=== PATIENT | female | born 1960 | race Caucasian/White ===

== ENCOUNTER 2017-02-09 13:01 | Outpatient (CLI) | payer BC, OTHER | END 2017-02-09 23:59 | DX: Z00.00 Encounter for general adult medical examination without abnormal findings (principal); E78.2 Mixed hyperlipidemia; Z79.899 Other long term (current) drug therapy ==

== ENCOUNTER 2017-04-07 19:50 | Outpatient (CLI) | payer OTHER | END 2017-04-07 19:51 | disposition home or self-care (01) | DX: E78.2 Mixed hyperlipidemia (principal); Z79.899 Other long term (current) drug therapy ==

== ENCOUNTER 2017-04-12 10:58 | Outpatient (CLI) | payer OTHER ==
--- NOTE | 2017-04-13 11:02 | Mammography Report ---
DIGITAL BILATERAL SCREENING MAMMOGRAM: 04/12/2017 CLINICAL HISTORY: This is a 57-year-old female in for a routine screening mammogram. Patient's fami ly history indicates her family had breast cancer at age 73. Patient has had no prior breast surgeries. COMPARISON: 10/06/2007, 07/03/2009, 10/22/2015. TECHNIQUE: Craniocaudad and oblique lateral views of each breast were obtained with [employer]ologic full-fie ld digital mammography. FINDINGS: Breast parenchyma shows scattered fibroglandular densities. No significant clusters of ca lcification are seen. No significant masses are noted. No change is seen. IMPRESSION: BREASTS APPEAR RADIOGRAPHICALLY BENIGN. BI-RADS 1, negative. RECOMMENDATION: Annual bilateral screening mammography. STANDARD QUALIFYING STATEMENTS 1. This examination was reviewed with the aid of Computer-Aided Detection (CAD). 2. A negative or benign imaging report should not delay biopsy if clinically suspicious findings are present. Consider surgical consultation if warranted. More than 5% of cancers are not identified by i maging. 3. Dense breasts may obscure an underlying neoplasm. JOB #: [id number] EXT JOB #:[id number]
== END 2017-04-12 10:59 | disposition home or self-care (01) ==
LOC: DI 10:58
PROVIDERS: ATTEND Physician Assistant Medical
DX: Z12.31 Encounter for screening mammogram for malignant neoplasm of breast (principal); Z80.3 Family history of malignant neoplasm of breast
CPT/HCPCS: 77067

== ENCOUNTER 2018-06-27 09:01 | Outpatient (CLI) | payer OTHER ==
[2018-06-27 17:02] LABS: BASOPHILS # (AUTO) 0.1 10^3/uL (0.0-0.1); BASOPHILS % (AUTO) 1.1 %; BILIRUBIN,URINE NEGATIVE (NEGATIVE); EOSINOPHILS # (AUTO) 0.2 10^3/uL (0.0-0.7); EOSINOPHILS % (AUTO) 3.9 %; GLUCOSE, URINE (UA) NEGATIVE (NEGATIVE); HGB - HEMOGLOBIN 14.9 g/dL (12.0-16.0); KETONES,URINE (UA) NEGATIVE (NEGATIVE); LEUKOCYTE ESTERASE, URINE NEGATIVE (NEGATIVE); LYMPHOCYTES # (AUTO) 1.4 10^3/uL (1.5-3.5); LYMPHOCYTES % (AUTO) 29.3 %; MEAN CORPUSCULAR HGB CONC 34.4 g/dL (32.0-36.0); MEAN CORPUSCULAR VOLUME 96.1 fL (81.0-99.0); MEAN PLATELET VOLUME 8.6 fL (7.9-10.8); MONOCYTES # (AUTO) 0.4 10^3/uL (0.0-1.0); MONOCYTES % (AUTO) 8.5 %; NEUTROPHILS # (AUTO) 2.7 10^3/uL (1.5-6.6); NEUTROPHILS % (AUTO) 57.2 %; NITRITE,URINE NEGATIVE (NEGATIVE); OCCULT BLOOD,URINE NEGATIVE (NEGATIVE); PH,URINE 6.5 PH (5.0-7.5); PLT - PLATELET COUNT 208 10^3/uL (130-450); PROTEIN,URINE NEGATIVE (NEGATIVE); RED BLOOD COUNT 4.52 10^6/uL (4.20-5.40); RED CELL DISTRIBUTION WIDTH 12.7 % (12.0-15.0); UROBILINOGEN,URINE 0.2 (NORMAL) E.U./dL (NORMAL); WHITE BLOOD COUNT 4.8 x10^3/uL (4.8-10.8)
[2018-06-27 17:03] LABS: CLARITY,URINE CLEAR (CLEAR)
[2018-06-27 17:14] LABS: ALBUMIN 4.2 g/dL (3.2-5.5); ALBUMIN/GLOBULIN RATIO 1.4 (1.0-2.2); ALKALINE PHOSPHATASE 79 IU/L (42-121); ALT ALANINE AMINOTRANSFERASE 28 IU/L (10-60); AST ASPARTATE AMINOTRANSFERASE 26 IU/L (10-42); BILIRUBIN,TOTAL 0.9 mg/dL (0.2-1.0); BUN - BLOOD UREA NITROGEN 9 mg/dL (6-20); CALCIUM 9.4 mg/dL (8.5-10.3); CARBON DIOXIDE - CO2 25 mmol/L (21-32); CHLORIDE 106 mmol/L (101-111); CHOL/HDL RATIO 2.4 (<4.4); CHOLESTEROL 187 mg/dL; CREATININE 0.6 mg/dL (0.4-1.0); GFR - MDRD 102 (>89); GLUCOSE 74 mg/dL (70-100); HDL CHOLESTEROL 78 mg/dL; LDL CHOLESTEROL,CALCULATED 78 mg/dL; SODIUM 141 mmol/L (135-145); TOTAL PROTEIN 7.1 g/dL (6.7-8.2); VLDL CHOLESTEROL 31 mg/dL
[2018-06-28 13:07] LABS: HEPATITIS C ANTIBODY NON-REACTIVE (NON-REACTIVE)
== END 2018-06-27 09:02 ==
LOC: LAB.R 09:01
PROVIDERS: ATTEND Physician Assistant Medical
DX: Z00.00 Encounter for general adult medical examination without abnormal findings (principal); E55.9 Vitamin D deficiency, unspecified; Z79.899 Other long term (current) drug therapy; I10 Essential (primary) hypertension; Z13.818 Encounter for screening for other digestive system disorders
CPT/HCPCS: 80053; 80061; 81001; 81003; 82306; 83721; 84443; 85025; 86803; 87086

== ENCOUNTER 2018-07-06 14:20 | Outpatient (CLI) | payer OTHER | END 2018-07-06 14:21 | disposition home or self-care (01) | LOC: CAM 14:20 | PROVIDERS: ATTEND Orthopaedic Surgery Orthopaedic Surgery of the Spine | DX: M43.16 Spondylolisthesis, lumbar region (principal); Z98.890 Other specified postprocedural states; M47.26 Other spondylosis with radiculopathy, lumbar region | CPT/HCPCS: 97810; 97811 ==

== ENCOUNTER 2018-08-03 16:30 | Outpatient (CLI) | payer OTHER | END 2018-08-03 16:31 | disposition home or self-care (01) | LOC: CAM 16:30 | PROVIDERS: ATTEND Orthopaedic Surgery Orthopaedic Surgery of the Spine | DX: M43.16 Spondylolisthesis, lumbar region (principal); M48.062 Spinal stenosis, lumbar region with neurogenic claudication; M47.26 Other spondylosis with radiculopathy, lumbar region; Z98.890 Other specified postprocedural states | CPT/HCPCS: 97810; 97811 ==

== ENCOUNTER 2019-04-02 07:27 | Outpatient (CLI) | payer BC ==
[2019-04-02 07:43] LABS: BASOPHILS # (AUTO) 0.1 10^3/uL (0.0-0.1); BASOPHILS % (AUTO) 1.3 %; EOSINOPHILS # (AUTO) 0.2 10^3/uL (0.0-0.7); HGB - HEMOGLOBIN 14.9 g/dL (12.0-16.0); LYMPHOCYTES # (AUTO) 2.1 10^3/uL (1.5-3.5); LYMPHOCYTES % (AUTO) 45.5 %; MEAN CORPUSCULAR HGB CONC 34.6 g/dL (32.0-36.0); MEAN CORPUSCULAR VOLUME 89.7 fL (81.0-99.0); MEAN PLATELET VOLUME 7.7 fL (7.9-10.8); MONOCYTES # (AUTO) 0.4 10^3/uL (0.0-1.0); MONOCYTES % (AUTO) 8.6 %; NEUTROPHILS # (AUTO) 1.8 10^3/uL (1.5-6.6); NEUTROPHILS % (AUTO) 39.6 %; PLT - PLATELET COUNT 201 10^3/uL (130-450); RED BLOOD COUNT 4.81 10^6/uL (4.20-5.40); RED CELL DISTRIBUTION WIDTH 12.2 % (12.0-15.0); WHITE BLOOD COUNT 4.6 x10^3/uL (4.8-10.8)
[2019-04-02 07:57] LABS: ALBUMIN 3.9 g/dL (3.2-5.5); CALCIUM 8.7 mg/dL (8.5-10.3); CREATININE 0.6 mg/dL (0.4-1.0)
[2019-04-02 08:03] LABS: HEMOGLOBIN A1C 0.5 g/dL
[2019-04-03 10:22] LABS: HEPATITIS C ANTIBODY NON-REACTIVE (NON-REACTIVE)
[2019-04-03 13:47] LABS: HIV AG/AB 4TH GEN NON-REACTIVE (NON-REACTIVE)
== END 2019-04-02 07:28 | disposition home or self-care (01) ==
LOC: LAB 07:27
PROVIDERS: ATTEND Orthopaedic Surgery
DX: Z01.812 Encounter for preprocedural laboratory examination (principal); M16.12 Unilateral primary osteoarthritis, left hip
CPT/HCPCS: 36415; 80048; 82040; 83036; 84134; 85025; 86803; 87389

== ENCOUNTER 2019-04-09 15:39 | Outpatient (CLI) | payer BC | END 2019-04-09 15:40 | LOC: RT 15:39 | PROVIDERS: ATTEND Orthopaedic Surgery | DX: Z01.810 Encounter for preprocedural cardiovascular examination (principal); M16.12 Unilateral primary osteoarthritis, left hip | CPT/HCPCS: 93005 ==

== ENCOUNTER 2019-09-25 16:05 | Outpatient (CLI) | payer BC | END 2019-09-25 16:06 | disposition home or self-care (01) | LOC: RT 16:05 | PROVIDERS: ATTEND Orthopaedic Surgery | DX: Z01.810 Encounter for preprocedural cardiovascular examination (principal) | CPT/HCPCS: 93005 ==

== ENCOUNTER 2019-10-17 11:13 | Outpatient (CLI) | payer BC ==
[2019-10-17 11:52] LABS: BILIRUBIN,URINE NEGATIVE (NEGATIVE); GLUCOSE, URINE (UA) NEGATIVE (NEGATIVE); KETONES,URINE (UA) NEGATIVE (NEGATIVE); LEUKOCYTE ESTERASE, URINE NEGATIVE (NEGATIVE); NITRITE,URINE POSITIVE (NEGATIVE); OCCULT BLOOD,URINE NEGATIVE (NEGATIVE); PROTEIN,URINE NEGATIVE (NEGATIVE); UROBILINOGEN,URINE 0.2 (NORMAL) E.U./dL (NORMAL)
[2019-10-17 12:05] LABS: CLARITY,URINE HAZY (CLEAR)
[2019-10-17 12:06] LABS: BACTERIA,URINE Few /HPF (None Seen); RBC,URINE 0-5 /HPF (0-5); SQUAMOUS EPITHELIAL CELL,UR RARE Squamous (<= Few)
== END 2019-10-17 11:14 | disposition home or self-care (01) ==
LOC: LAB 11:13
PROVIDERS: ATTEND Orthopaedic Surgery
DX: Z01.812 Encounter for preprocedural laboratory examination (principal); M16.11 Unilateral primary osteoarthritis, right hip
CPT/HCPCS: 81001; 81003; 87086; 87181

== ENCOUNTER 2020-07-25 08:28 | Outpatient (CLI) | payer OTHER ==
[2020-07-25 08:44] LABS: BASOPHILS # (AUTO) 0.1 10^3/uL (0.0-0.1); BASOPHILS % (AUTO) 0.8 %; EOSINOPHILS # (AUTO) 0.3 10^3/uL (0.0-0.7); EOSINOPHILS % (AUTO) 3.8 %; HGB - HEMOGLOBIN 15.9 g/dL (12.0-16.0); LYMPHOCYTES # (AUTO) 2.3 10^3/uL (1.5-3.5); LYMPHOCYTES % (AUTO) 30.8 %; MEAN CORPUSCULAR HEMOGLOBIN 32.4 pg (27.0-31.0); MEAN CORPUSCULAR HGB CONC 34.6 g/dL (32.0-36.0); MEAN CORPUSCULAR VOLUME 93.5 fL (81.0-99.0); MEAN PLATELET VOLUME 9.9 fL (7.9-10.8); MONOCYTES # (AUTO) 0.6 10^3/uL (0.0-1.0); MONOCYTES % (AUTO) 8.1 %; NEUTROPHILS # (AUTO) 4.2 10^3/uL (1.5-6.6); NEUTROPHILS % (AUTO) 56.1 %; PLT - PLATELET COUNT 253 10^3/uL (130-450); RED BLOOD COUNT 4.91 10^6/uL (4.20-5.40); RED CELL DISTRIBUTION WIDTH 12.1 % (12.0-15.0); WHITE BLOOD COUNT 7.4 x10^3/uL (4.8-10.8)
[2020-07-25 09:12] LABS: ALBUMIN 4.4 g/dL (3.2-5.5); ALBUMIN/GLOBULIN RATIO 1.6 (1.0-2.2); ALKALINE PHOSPHATASE 93 IU/L (42-121); ALT ALANINE AMINOTRANSFERASE 38 IU/L (10-60); AST ASPARTATE AMINOTRANSFERASE 25 IU/L (10-42); BILIRUBIN,TOTAL 0.6 mg/dL (0.2-1.0); BUN - BLOOD UREA NITROGEN 11 mg/dL (6-20); CALCIUM 9.2 mg/dL (8.5-10.3); CARBON DIOXIDE - CO2 28 mmol/L (21-32); CHLORIDE 102 mmol/L (101-111); CHOL/HDL RATIO 4.3 (<4.4); CHOLESTEROL 203 mg/dL; CREATININE 0.7 mg/dL (0.4-1.0); GLUCOSE 111 mg/dL (70-100); HDL CHOLESTEROL 47 mg/dL; LDL CHOLESTEROL,CALCULATED 124 mg/dL; LDL/HDL RATIO 2.6 (<4.4); SODIUM 138 mmol/L (135-145); TOTAL PROTEIN 7.2 g/dL (6.7-8.2); VLDL CHOLESTEROL 32 mg/dL
[2020-07-25 09:25] LABS: THYROID STIMULATING HORMONE 0.35 uIU/mL (0.34-5.60)
[2020-07-25 09:27] LABS: FREE T4 (FREE THYROXINE) 0.76 ng/dL (0.58-1.64)
== END 2020-07-25 08:29 | disposition home or self-care (01) ==
LOC: LAB 08:28
PROVIDERS: ATTEND Nurse Practitioner
DX: E78.2 Mixed hyperlipidemia (principal); Z79.899 Other long term (current) drug therapy; I10 Essential (primary) hypertension; E55.9 Vitamin D deficiency, unspecified; F32.9 Major depressive disorder, single episode, unspecified
CPT/HCPCS: 36415; 80053; 80061; 82306; 83721; 84439; 84443; 85025

== ENCOUNTER 2020-08-06 15:44 | Outpatient (CLI) | payer OTHER ==
--- NOTE | 2020-08-07 07:56 | Mammography Report ---
BILATERAL DIGITAL SCREENING MAMMOGRAM 3D/2D: 08/06/2020 CLINICAL: Routine screening. Comparison is made to exam dated: 04/12/2017 mammogram - [facility]. The tissue of both breasts is predominantly fatty. There is a 0.5 cm asymmetry in the right breast middle depth central to the nipple seen on the cranio caudal view only 6.8 cm from the nipple. No other significant masses, calcifications, or other findings are seen in either breast. IMPRESSION: INCOMPLETE: NEEDS ADDITIONAL IMAGING EVALUATION The 0.5 cm asymmetry in the right breast is indeterminate. A diagnostic mammogram and ultrasound is recommended. This exam was interpreted at Station ID: [id number]. NOTE: For mammograms, a report in lay terms will be sent to the patient. Approximately 15% of breast malignancies will not be visualized mammographically. In the management of a palpable breast mass, a negative mammogram must not discourage biopsy of a clinically suspicious lesion. Electronically Signed By: Bismark Cali M.D., jr/penrad:08/06/2020 16:50:19 ACR BI-RADS Category 0: Incomplete 3340F PARENCHYMAL PATTERN: (F) - The breast(s) demonstrate(s) diffuse fatty replacement. BI-RADS CATEGORY: (0) - 0 Mammo and [place] [id number] Immediate follow-up LATERALITY: (B)
== END 2020-08-06 15:45 | disposition home or self-care (01) ==
LOC: DI.N 15:44
PROVIDERS: ATTEND Nurse Practitioner
DX: Z12.31 Encounter for screening mammogram for malignant neoplasm of breast (principal); R92.8 Other abnormal and inconclusive findings on diagnostic imaging of breast
CPT/HCPCS: 77063; 77067

== ENCOUNTER 2020-10-01 08:53 | Outpatient (CLI) | payer OTHER ==
--- NOTE | 2020-10-02 13:22 | Ultrasound Report ---
LIMITED ULTRASOUND OF RIGHT BREAST: 10/01/2020 CLINICAL: Patient returns for additional imaging over a suspected mass in the right breast. Comparison is made to exams dated: 10/01/2020 mammogram, 08/06/2020 mammogram, and 04/12/2017 mammogra m - [facility]. Ultrasound of the right breast 12 o'clock region was performed on the area of interest. There is a 0.8 cm mass in the right breast at 12 o'clock middle depth. This mass is hypoechoic. Thi s correlates with mammography findings. IMPRESSION: SUSPICIOUS OF MALIGNANCY The 0.8 cm mass in the right breast is at a low suspicion for malignancy. An ultrasound guided biops y is recommended. This exam was interpreted at Station ID: [id number]. SUMMARY: This was discussed with the patient by the radiologist Dr. Figueredo at the time of the exam. Electronically Signed By: Clarissa Granado M.D. lk/:10/01/2020 12:00:48 Ultrasound BI-RADS: 4a Low suspicion for malignancy BI-RADS CATEGORY: (4a) - Low Susp Biopsy follow-up [id number] Immediate follow-up LATERALITY: (B)
--- NOTE | 2020-10-02 13:22 | Mammography Report ---
UNILATERAL RIGHT DIGITAL DIAGNOSTIC MAMMOGRAM 3D/2D: 10/01/2020 CLINICAL: Patient returns today to evaluate a focal asymmetry in the right breast. Comparison is made to exams dated: 08/06/2020 mammogram and 04/12/2017 mammogram - [facility]. There are scattered fibroglandular elements in right breast. There is a focal asymmetry in the right breast at 12 o'clock middle depth. This is seen in additiona l views. No other significant masses or calcifications are seen in the breast. IMPRESSION: INCOMPLETE: NEEDS ADDITIONAL IMAGING EVALUATION The focal asymmetry in the right breast is indeterminate. A targeted ultrasound of the right breast is recommended and will be performed immediately following this exam. This exam was interpreted at Station ID: [id number]. NOTE: For mammograms, a report in lay terms will be sent to the patient. Approximately 15% of breast malignancies will not be visualized mammographically. In the management of a palpable breast mass, a negative mammogram must not discourage biopsy of a clinically suspicious lesion. Electronically Signed By: Clarissa Granado M.D. lk/:10/01/2020 09:34:21 ACR BI-RADS Category 0: Incomplete 3340F PARENCHYMAL PATTERN: (A) - The breast(s) demonstrate(s) scattered fibroglandular densities. BI-RADS CATEGORY: (0) - 0 Ultrasound [id number] Immediate follow-up LATERALITY: (B)
== END 2020-10-01 08:54 | disposition home or self-care (01) ==
LOC: DI 08:53
PROVIDERS: ATTEND Nurse Practitioner
DX: N63.15 Unspecified lump in the right breast, overlapping quadrants (principal)
CPT/HCPCS: 76642

== ENCOUNTER 2020-10-07 12:47 | Outpatient (CLI) | payer OTHER ==
[~2020-10-07 12:47] MED LIST: BUFFERED LIDOCAINE 10 ML SYRINGE ONE
[2020-10-07] MEDS ORDERED: BUFFERED LIDOCAINE 10 ML SYRINGE IU ONE (16:13)
--- NOTE | 2020-10-08 07:26 | Mammography Report ---
UNILATERAL RIGHT DIGITAL DIAGNOSTIC MAMMOGRAM 3D/2D: 10/07/2020 CLINICAL: Post right breast ultrasound biopsy, clip placment imaging. Comparison is made to exam dated: 10/07/2020 ultrasound biopsy - [facility]. Ther e are scattered fibroglandular elements in right breast. There is a marker clip in the appropriate position in the right breast at 12 o'clock middle depth. IMPRESSION: POST PROCEDURE MAMMOGRAM FOR MARKER PLACEMENT There was a successful marker clip placement in the right breast middle depth. This exam was interpreted at Station ID: [id number]. NOTE: For mammograms, a report in lay terms will be sent to the patient. Approximately 15% of breast malignancies will not be visualized mammographically. In the management of a palpable breast mass, a negative mammogram must not discourage biopsy of a clinically suspicious lesion. Electronically Signed By: Maxwell Horton M.D. aty/:10/07/2020 15:39:08 ACR BI-RADS Category Post-procedure mammogram for marker placement PARENCHYMAL PATTERN: (A) - The breast(s) demonstrate(s) scattered fibroglandular densities. BI-RADS CATEGORY: () - Unspecified - other recall n/a LATERALITY: (B)
--- NOTE | 2020-10-09 10:05 | Ultrasound Report ---
ULTRASOUND GUIDED BIOPSY RIGHT BREAST USING VACUUM DEVICE WITH MARKING DEVICE INSERTED AND POST MAMMO GRAPHIC IMAGIN10/07/2020 CLINICAL: Right breast mass. PATIENT CONSENT: Risks (minor bleeding, infection, vasovagal reaction and repeat procedure), benefits and alternatives were explained to the patient and written informed consent was obtained. Correlation is made to exams dated: 10/01/2020 ultrasound, 10/01/2020 mammogram, 08/06/2020 mammogram , and 04/12/2017 mammogram - [facility]. An ultrasound guided biopsy using real-time ultrasound was performed for the 0.8 cm mass located in t he right breast at 12 o'clock middle depth. This was described on the previous mammography and ultra sound reports. The skin was prepped in the usual manner. Local anesthetic was administered to the a ccess site. A skin po was made in the breast. The abnormality was approached from the lateral asp ect. A 13 gauge biopsy needle was placed adjacent to the abnormality under ultrasound guidance. Onc e the needle was documented to be in the correct location, five specimens were obtained using the [employer] biopsy system. A clip was inserted into the biopsy cavity. A sterile dressing was applied to the access site. Post procedure mammographic imaging demonstrates the location device at the target ed area. The specimens were sent to the laboratory for pathological analysis. IMPRESSION: ULTRASOUND GUIDED BIOPSY MALIGNANT Ultrasound guided biopsy of the 0.8 cm mass in the right breast at 12 o'clock middle depth was succes sful. Pathology indicates malignant infiltrating ductal carcinoma. A surgical/oncologic consultatio n is recommended. This exam was interpreted at Station ID: [id number]. Maxwell slater jr/:10/09/2020 09:41:50 BI-RADS CATEGORY: () - Unspecified - other recall n/a LATERALITY: (B)
== END 2020-10-07 12:48 | disposition home or self-care (01) ==
LOC: DI 12:47
PROVIDERS: ATTEND Nurse Practitioner
DX: C50.811 Malignant neoplasm of overlapping sites of right female breast (principal); Z17.0 Estrogen receptor positive status [ER+]
CPT/HCPCS: 19083

== ENCOUNTER 2020-11-13 14:08 | Outpatient (CLI) | payer OTHER ==
[2020-11-13] MEDS ORDERED: GADOBUTROL 7.5 MMOL/7.5 ML VIAL ONE (14:32)
[2020-11-13] MEDS ORDERED: GADOBUTROL 7.5 MMOL/7.5 ML VIAL IVP ONE (15:27)
--- NOTE | 2020-11-18 07:28 | MRI Report ---
BREAST MRI OF BOTH BREASTS: 11/13/2020 CLINICAL: Right breast cancer. Comparison is made to exams dated: 10/07/2020 mammogram, 10/07/2020 ultrasound biopsy, 10/01/2020 ul trasound, 10/01/2020 mammogram, 08/06/2020 mammogram, and 04/12/2017 mammogram - [facility]. TECHNIQUE: The patient was placed prone in a dedicated breast imaging coil. Precontrast axial STIR and 3D FLASH without fat saturation sequences were obtained. Both before and after bolus injection of contrast, sequential 1-minute axial 3D FLASH with fat saturation sequences for 3 time points, with subtraction images and maximum intensity projections (MIPs) generated. Delayed sagittal FLASH images with fat s aturation were also obtained. Computer-aided detection, including computer algorithm analysis of MRI image data for lesion detectio n and characterization, pharmacokinetic analysis, with further physician review for interpretation, w as performed. FINDINGS: Image quality: Excellent. There is mild background parenchymal enhancement. Right breast: There is a biopsy clip in the right breast at the 12 oclock position middle depth cor responding to the prior biopsy with pathology indicating malignant infiltrating ductal carcinoma. The re is an associated oval mass measuring 5 x 6 x 5 mm (image 95 of series 507, and image 59 of series 701) with mildly irregular margins and rim enhancement. No significantly enlarged right axillary lymph node is identified. Left breast: No suspicious mass or abnormal non-mass enhancement is identified in the left breast. T here is no left axillary lymphadenopathy. Miscellaneous: No suspicious mass is seen in the included anterior chest wall or upper abdomen. IMPRESSION: KNOWN BIOPSY PROVEN MALIGNANCY 1. Biopsy-proven malignancy in the right breast at the 12 oclock position middle depth measures 5 x 6 x 5 mm. 2. No suspicious findings in the left breast. 3. No suspicious axillary lymphadenopathy. BIRADS 6: Known biopsy-proven malignancy. COMMENT: The imaging literature indicates that a negative contrast breast MRI examination has a high sensitivity and a moderate specificity for detecting and excluding invasive carcinomas to a detection threshold of 3-5 mm; nonetheless, appropriate clinical and mammographic follow-up are recommended. MRI is not sensitive for detecting DCIS (ductal carcinoma in situ) and may not detect large invasive neoplasms that show only minimal enhancement such as mucinous carcinoma. If there are suspicious brittanie cifications or clinically worrisome palpable masses, then biopsy should still be considered. Invasiv e neoplasms can be hidden by co-existent and benign enhancement caused by mastitis, hormone therapy e ffects, radiation therapy, , and recent biopsy or surgery. False positive examinations can occur in a number of circumstances, including breasts that have recently been subject to invasive pro cedures and those that contain atypical ductal hyperplasia, hormonally stimulated glandular tissue, f at necrosis, or radial scars. This exam was interpreted at Station ID: [id number]. Electronically Signed By: Rashaad Keita M.D. ar/:11/17/2020 14:41:12 ACR BI-RADS Category 6: Known biopsy proven malignancy 3346F BI-RADS CATEGORY: (6) - 6 Unspecified - other recall n/a LATERALITY: (B)
== END 2020-11-13 14:09 | disposition home or self-care (01) ==
LOC: DI 14:08
PROVIDERS: ATTEND Surgery
DX: C50.811 Malignant neoplasm of overlapping sites of right female breast (principal)
CPT/HCPCS: 77049; A9585

== ENCOUNTER 2020-11-27 20:07 | Outpatient (CLI) | payer OTHER ==
--- OUTSIDE RECORDS SUMMARY | 2020-12-03 01:22 | EXTERNAL MEDICAL SUMMARY RPT | Continuity of Care Document ---
:1960 Demographics Phone Unavailable Preferred Language Sudanese Marital Status Unknown Christianity Affiliation Unknown Race Unknown Ethnic Group Unknown Author Organization [place] Address [address] [place] [address] Phone Care Team Providers Name Role Phone LEARNING SPECIALIST Unavailable Unavailable Tania Unavailable Unavailable Joselito Unavailable Unavailable Problems date description facility 2020-10-01 08:53 UNSPECIFIED LUMP IN THE RIGHT [facility] BREAST, OVERLAPPING QUADRANTS 2020-10-02 00:00:00 US [facility] [place] [facility] 2020-10-02 00:00:00 MM DIAG DIGIT MAMMO U/L [facility] [place] [facility] 2020-10-13 00:00:00 Malignant neoplasm of breast [facility] (female), unspecified [place] [facility] 2020-10-13 00:00[facility] [place] [facility] female breast 2020-10-13 00:00:00 [facility] [place] [facility] 2020-10-13 00:00:00 [facility] [place] [facility] 2020-10-13 00:00:00 Tobacco use and exposure [facility] [place] [facility] 2020-10-13 00:00:00 [facility] [place] [facility] 2020-10-13 00:00:00 [facility] smoker [facility] [place] [facility] 2020-10-13 00:00:00 Infiltrating duct carcinoma [facility] breast [place] [facility] 2020-10-13 00:00:00 [facility] [place] [facility] 2020-10-13 00:00:00 Tobacco [facility] [place] [facility] 2020-10-22 00:00:00 [facility] BRAIN [facility] [place] [facility] 2020-10-22 00:00:00 [facility] [place] [facility] 2020-10-22 00:00:00 [facility]inine [facility] [place] [facility] 2020-10-22 00:00:00 [facility] [place] [facility] 2020-10-22 00:00:00 [facility] [place] [facility] 2020-10-22 00:00:00 [facility] [place] [facility] 2020-10-22 00:00:00 [facility] [place] [facility] 2020-10-22 00:00:00 [facility] 2020-10-22 00:00:00 [facility] [place] [facility] 2020-10-22 00:00:00 Tobacco [facility] 2020-10-29 10:30 MALIGNANT [facility]LASM [facility] S[facility] FEMALE BREAST 2020-10-29 10:30 HYPERLIPIDEMIA, UNSPECIFIED [facility] 2020-10-29 10:30 MAJOR DEPRESSIVE DISORDER, [facility] SINGLE EPISODE, UNSPECIFIED 2020-10-29 10:30 ESSENTIAL (PRIMARY) [facility] HYPERTENSION 2020-10-29 10:30 OTHER CREDIT RISK ASSOCIATE (CURRENT) DRUG [facility] THERAPY 2020-10-29 10:30 FAMILY HISTORY OF MALIGNANT [facility] NEOP[facility] BREAST 2020-11-13 14:08 MALIGNANT NEOPLASM OF UNSP [facility] SITE OF UNSPECIFIED FEMALE BREAST 2020-11-19 00:00:00 [facility] 2020-11-19 00:00:00 [facility]related [facility] [place] [facility] 2020-11-19 00:00:00 [facility] [place] [facility] 2020-11-19 00:00:00 [facility] 2020-11-19 00:00:00 [facility] smoker [facility] [place] [facility] 2020-11-19 00:00:00 [facility] [place] [facility] 2020-11-19 00:00:00 Tobacco smoking status [facility] [place] [facility] 2020-11-24 00:00:00 [facility] [place] [facility] 2020-11-24 00:00:00 [facility] [place] [facility] 2020-11-24 00:00:00 Tobacco [facility] and [facility] [place] [facility] 2020-11-24 00:00:00 [facility] [place] [facility] 2020-11-24 00:00:00 [facility] [place] [facility] 2020-11-24 00:00:00 [facility] [place] [facility] 2020-11-24 00:00:00 Tobacco smoking status [facility] [place] [facility] 2020-12-12 15:40 MALIGNANT NEOPLASM OF OVRLP [facility] SITES OF RIGHT FEMALE BREAST 2020-12-12 15:40 HYPERLIPIDEMIA, UNSPECIFIED [facility] 2020-12-12 15:40 MAJOR DEPRESSIVE DISORDER, [facility] SINGLE EPISODE, UNSPECIFIED 2020-12-12 15:40 ESSENTIAL (PRIMARY) [facility] HYPERTENSION 2020-12-12 15:40 OTHER RETIREMENT (CURRENT) DRUG [facility] THERAPY 2020-12-12 15:40 FAMILY HISTORY OF MALIGNANT [facility] NEOPLASM OF BREAST Allergies date description facility NO KNOWN ENVIRONMENTAL ALLERGIES [facility] NO KNOWN ENVIRONMENTAL ALLERGIES [facility] SULFA ANTIBIOTICS [facility] ADHESIVE \T\ TAPE [facility] OTHER [facility] AMOXICILLIN TRIHYDRATE [facility] [place] AMOXICILLIN [facility] FLUTICASONE PROPIONATE [facility] ed[facility] Center NO KNOWN ALLERGIES [facility] PENICILLINS [facility] SULFA (SULFONAMIDE ANTIBIOTICS) [facility] NO KNOWN ALLERGIES [facility] METOCLOPRAMIDE HCL [facility] SPIRONOLACTONE [facility] ROPINIROLE [facility] NITROGLYCERIN [facility] No Known Drug Allergies [facility] NO KNOWN ENVIRONMENTAL ALLERGIES [facility] NO KNOWN ALLERGIES [facility] NO KNOWN ALLERGIES [facility] No Known Drug Allergies [facility] Medications date description facility 2020-11-24 00:00:00 null [facility] [place] [facility] 2020-11-24 00:00:00 null [facility] [place] [facility] 2020-11-24 00:00:00 BUPROPION HCL [facility] [place] [facility] 2020-11-24 00:00:00 BUPROPION HCL [facility] [place] [facility] Procedures date description facility 2020-10-02 00:00:00 US BX BREAST [facility]ORE [facility] [place] [facility] date description facility 2020-10-02 00:00:00 MM DIAG DIGIT MAMMO U/L [facility] [place] [facility] date description facility 2020-10-02 00:00:00 [facility] [place] [facility] Results Social History date description facility 2020-10-13 00:00:00 Never smoker [facility] [place] [facility] date description facility 2020-10-22 00:00:00 [facility] smoker [facility] [place] [facility] date description facility 2020-11-19 00:00:00 [facility] [place] [facility] date description facility 2020-11-24 00:00:00 [facility] [place] [facility] Social History date description facility 2020-10-13 00:00:00 [facility] [place] [facility] date description facility 2020-10-22 00:00:00 [facility] [place] [facility] date description facility 2020-11-19 00:00:00 [facility] [place] [facility] date description facility 2020-11-24 00:00:00 [facility] [place] [facility] date description facility [id number]
== END 2020-11-27 20:08 | disposition home or self-care (01) ==
LOC: COV 20:07
PROVIDERS: ATTEND Surgery
DX: Z01.812 Encounter for preprocedural laboratory examination (principal); C50.911 Malignant neoplasm of unspecified site of right female breast; Z20.822 Contact with and (suspected) exposure to COVID-19

== ENCOUNTER 2020-12-01 07:28 | Day surgery (SDC) | payer OTHER ==
[2020-12-01] MEDS ORDERED: ceFAZolin 2 GM/50 ML 2 GM/50 ML BAG IV ONE (08:25)
--- NOTE | 2020-12-01 10:31 | ANESTHESIA ---
Pre-Anesthesia VS, & Labs - Diagnosis Right breast DCIS - Procedure Right breast lumpectomy with SN biopsy Vital Signs: Temp Pulse Resp BP Pulse Ox 36.5 C 64 19 136/88 H 96 12/01/20 07:30 12/01/20 07:30 12/01/20 07:30 12/01/20 07:30 12/01/20 07:30 Height: 5 ft 4 in Weight (kg): 74.3 kg Body Mass Index: 28.0 BMI Classification: Overweight - NPO >8 hours - Is Patient ?: No Home Medications and Allergies Home Medications: Ambulatory Orders Bisoprolol Fumarate/Hctz [Ziac 5-6.25 mg Tablet] 1 each PO DAILY 11/25/20 guaiFENesin [Mucinex] 600 mg PO DAILY PRN 11/25/20 Atorvastatin [Lipitor] 40 mg PO DAILY 10/24/20 Omeprazole 20 mg PO DAILY 10/24/20 Sertraline HCl 100 mg PO DAILY 10/24/20 Bisoprolol Fumarate/Hctz [Ziac 5-6.25 mg Tablet] 1 each PO DAILY 11/25/20 guaiFENesin [Mucinex] 600 mg PO DAILY PRN 11/25/20 Allergies/Adverse Reactions: Allergies Allergy/AdvReac Type Severity Reaction Status Date / Time No Known Drug Allergies Allergy Verified 10/24/20 16:04 Anes History & Medical History - Anesthetic History Anesthesia Complications: reports: No previous complications - Medical History Cardiovascular: reports: Hypertension Pulmonary: reports: None Gastrointestinal: reports: GERD, Other Urinary: reports: Other (one kidney) Neuro: reports: None Musculoskeletal: reports: Chronic back pain Endocrine/Autoimmune: reports: None Skin: reports: None Smoking Status: Never smoker Psychosocial: reports: Alcohol (glass of wine daily), Cannabis (daily use) History of Cancer?: Yes - Surgical History Gynecologic: section (x4) Orthopedic: Hip replacement (bilateral), Spine surgery (lumbar) Exam General: Alert, Oriented x3, Cooperative, No acute distress Dental: WNL Mouth Openin Fingerbreadth Neck Mobility: Normal Mallampati classification: II Thyromental Distance: 4-6 cm Respiratory: Lungs clear, Normal breath sounds, No respiratory distress, No accessory muscle use Cardiovascular: Regular rate, Normal S1, Normal S2, No murmurs Mental/Cognitive Status: Alert/Oriented X3, Normal for patient Plan Anesthesia Type: General Consent for Procedure(s) Verified and Reviewed: Yes Code Status: Attempt Resuscitation ASA classification: 2-Mild systemic disease Is this case an emergency?: No
[2020-12-01] MEDS ORDERED: LIDOCAINE MPF 1%-EPI 1:200000 30 ML VIAL SUBQ ONE ×2 (10:40→11:34)
[2020-12-01] MEDS ORDERED: BUPIVACAINE 0.5% PF 30 ML VIAL INFIL ONE ×2 (10:41→11:35)
[2020-12-01] MEDS ORDERED: DEXAMETHASONE 4 MG/ML VIAL ONE (10:49)
[2020-12-01] MEDS ORDERED: LIDOCAINE-MPF 2% 5 ML VIAL ONE (10:49)
[2020-12-01] MEDS ORDERED: MIDAZOLAM 2 MG/2 ML VIAL ONE (10:49)
[2020-12-01] MEDS ORDERED: diphenhydrAMINE INJ 50 MG/ML VIAL ONE (10:49)
[2020-12-01] MEDS ORDERED: ONDANSETRON 4 MG/2 ML VIAL ONE (10:49)
[2020-12-01] MEDS ORDERED: fentaNYL 100 MCG/2 ML VIAL ONE (10:49)
[2020-12-01] MEDS ORDERED: PROPOFOL 200 MG/20 ML VIAL IVP ONE (11:20)
--- NOTE | 2020-12-01 11:59 | OPERATIVE REPORT ---
Operative Report - General Procedure Date: 12/01/20 Planned Procedure: Right breast lumpectomy and sentinel node dissection after needle localization and mapping. Pre-Op Diagnosis: Biopsy proven invasive cancer Procedure Performed: Right breast lumpectomy and sentinel node dissection after needle localization and mapping Post Op Diagnosis: Biopsy proven invasive cancer - Procedure Note Primary Surgeon: Tania Anesthesia Provider: ANTONIO Boudreaux Pathology: 1. One sentinel node to pathology in formalin. Target count > 60460, Background in the axilla 41, Background in the room was 0 2. Right breast specimen containing the clip and wire. Estimated Blood Loss (mL): 20 Findings: A single very active sentinel node. Grossly normal morphology Complications: None apparent - Other Other Information/Narrative: After obtaining informed consent, the patient was brought to the operating room and placed in the supine position on the operating table. Following successful induction of general endotracheal anesthesia, appropriate padding of all bony prominences, and placement of appropriate monitors, the left breast was prepped and draped in the standard surgical fashion. A timeout was held per scope pr otocol. All elements of the surgical safety checklist were followed before, during, and after the procedure. We began the procedure with a sentinel node dissection. The site of the brightest node had been marked in radiology with 2 skin marker axis. The neoprobe was used to identify the site of greatest uptake at level 2 in the patient's axilla. The patient is quite thin and has minimal axillary tissue. An incision was created over this area of uptake and carried through the skin and subcutaneous tissue to enter the axillary node packet. The sentinel node was easily identified. It was grossly normal in appearance. It was carefully dissected free from surrounding stop structures sharply, all lymphatics and vasculature were addressed with clips prior to division. The node was liberated into the field. 10-second counts are recorded. Survey of the axilla revealed no other targets. Background in the axilla was checked and found to be 8-41. Background in the room was 0. The axillary incision was then closed in 2 layers with Vicryl and Monocryl sutures. We turned our attention to the left breast mass. The area over the mass and in the periareolar region was infiltrated with a mixture of local anesthetics to cry to field block. A periareolar incision was then created and the mass and associated wire carefully dissected sharply from the dermis anteriorly and from the muscle posteriorly. A small ellipse of skin was taken with the specimen due to the lesions proximity to the skin. The mass was removed in a single piece in a medial to lateral fashion. It was marke d with a short stitch superior, long stitch lateral, and double stitch anterior. It was finally liberated sharply and delivered into the field. The wound was checked for hemostasis. It was irrigated again with warm water. The biopsy cavity was then marked for orientation with clips peripherally and centrally. The specimen xray was examined and found to contain the target clip and wire well centered. The wound was then closed in 2 layers with Vicryl and Monocryl sutures. All sponge, needle, and instrument counts were correct at the conclusion of the case. The patient was let awakened anesthesia without difficulty and taken to the postanesthesia care unit in good condition.
[2020-12-01] MEDS ORDERED: ACETAMINOPHEN 325 MG TABLET PO PRN (12:04)
[2020-12-01] MEDS ORDERED: IBUPROFEN 600 MG TABLET PO PRN (12:04)
[2020-12-01] MEDS ORDERED: ONDANSETRON 4 MG/2 ML VIAL IVP PRN (12:04)
[2020-12-01] MEDS ORDERED: oxyCODONE 5 MG TABLET PO PRN (12:04)
[2020-12-01] MEDS ORDERED: KETOROLAC 30 MG/ML VIAL ONE (12:07)
[2020-12-01] MEDS ORDERED: LACTATED RINGERS 1,000 ML IV ONE (12:09)
[2020-12-01 12:45] VITALS: BP 137/88
--- NOTE | 2020-12-01 12:51 | ANESTHESIA POST OP EVALUATION ---
Anesthesia Post Eval - Post Anesthesia Eval Vitals: Last Vital Signs Temp 36.4 C L 12/01/20 12:44 Pulse 67 12/01/20 12:44 Resp 14 12/01/20 12:44 BP 137/88 H 12/01/20 12:44 Pulse Ox 95 12/01/20 12:44 CV Function Including HR & BP: positive: Stable Pain Control: positive: Satisfactory Nausea & Vomiting: positive: Negative Mental Status: positive: Baseline Respiratory Status: Airway Patent Hydration Status: Satisfactory Anesthesia Complications: positive: None
[2020-12-01] MEDS ORDERED: BUFFERED LIDOCAINE 10 ML SYRINGE IU ONE (14:30)
--- NOTE | 2020-12-01 15:06 | Nuclear Medicine Report ---
PROCEDURE: Lymph Node Scintigraphy INDICATIONS: RIGHT BREAST CANCER RADIOPHARMACEUTICAL: 0.5-1.0 mCi Millipore filtered Tc-99m sulfur colloid. TECHNIQUE: The area around the nipple was prepped and draped in a sterile fashion. Tc-99m sulfur colloid was in jected intra-dermally in the outer edge of the areola in the right breast. Images were obtained subs equently. A body contour outline was obtained. FINDINGS: There are 2 lymph node(s) in the ipsilateral axilla IMPRESSION: 2sentinel lymph nodes are identified in the ipsilateral right axilla. Reviewed by: Fara Salinas MD on 12/01/2020 3:05 PM PST Approved by: Fara Salinas MD on 12/01/2020 3:05 PM PST Station ID: [id number]
--- NOTE | 2020-12-02 09:01 | Ultrasound Report ---
ULTRASOUND GUIDED WIRE LOCALIZATION RIGHT BREAST WITH POST MAMMOGRAPHIC IMAGIN12/01/2020 CLINICAL: Pre op wire localization with ultrasound. Correlation is made to exams dated: 11/13/2020 breast MRI, 10/07/2020 mammogram, 10/07/2020 ultrasou nd biopsy, 10/01/2020 ultrasound, 10/01/2020 mammogram, and 08/06/2020 mammogram - [facility]. A wire localization using ultrasound guidance was performed for the mass located in the right breast at 12 o'clock 8 cm from the nipple. This was described on the previous mammography and ultrasound r eports. The skin was prepped in the usual manner. Topical and local anesthetic was administered to the access site. The localization was approached from the medial aspect. A J-hook wire was inserted into the targeted area under ultrasound guidance. A sterile dressing was applied to the access site . Post placement mammographic imaging was obtained. IMPRESSION: WIRE LOCALIZATION Wire localization for the mass in the right breast at 12 o'clock was successful. This exam was interpreted at Station ID: [id number]. Olive Figueredo M.D. [facility]/:12/01/2020 10:45:54 BI-RADS CATEGORY: () - Unspecified - other recall n/a LATERALITY: (B)
--- NOTE | 2020-12-02 09:01 | Mammography Report ---
SPECIMEN RIGHT BREAST: 12/01/2020 CLINICAL: Right breast specimen. Correlation is made to exams dated: 12/01/2020 mammogram, 12/01/2020 localization, 11/13/2020 breast M [place], 10/07/2020 mammogram, and 10/07/2020 ultrasound biopsy - [facility]. A surgical specimen was obtained imaged for the previous biopsy site located in the right breast at 12 o'clock posterior depth. Surgical biopsy clip and localization wire is present in the specimen. IMPRESSION: SPECIMEN The imaged specimen includes a biopsy clip and the distal portion of the localization wire. This exam was interpreted at Station ID: [id number]. Olive Figueredo M.D. [facility]/:12/01/2020 15:11:25 BI-RADS CATEGORY: () - Unspecified - other recall n/a LATERALITY: (B)
--- NOTE | 2020-12-03 09:20 | Mammography Report ---
UNILATERAL RIGHT DIGITAL DIAGNOSTIC MAMMOGRAM 3D/2D: 12/01/2020 CLINICAL: Pre op wire localization with ultrasound. Comparison is made to exams dated: 12/01/2020 localization, 10/07/2020 mammogram, and 10/07/2020 ultr asound biopsy - [facility]. There are scattered fibroglandular elements in right b reast. There is a biopsy clip and wire in the right breast at 12 o'clock. IMPRESSION: KNOWN BIOPSY PROVEN MALIGNANCY Wire localization at the biopsy clip at 12 o'clock. This exam was interpreted at Station ID: [id number]. NOTE: For mammograms, a report in lay terms will be sent to the patient. Approximately 15% of breast malignancies will not be visualized mammographically. In the management of a palpable breast mass, a negative mammogram must not discourage biopsy of a clinically suspicious lesion. Electronically Signed By: Olive Figueredo M.D. [facility]/:12/03/2020 09:15:42 ACR BI-RADS Category 6: Known biopsy proven malignancy 3346F PARENCHYMAL PATTERN: (A) - The breast(s) demonstrate(s) scattered fibroglandular densities. BI-RADS CATEGORY: (6) - 6 Unspecified - other recall n/a LATERALITY: (B)
== END 2020-12-01 07:29 | disposition home or self-care (01) ==
LOC: DI 07:28
PROVIDERS: ATTEND Surgery
PROC: 0HBT0ZZ Excision of Right Breast, Open Approach (ICD-10-PCS; principal; 2020-12-01 10:15)
DX: C50.811 Malignant neoplasm of overlapping sites of right female breast (principal); Z17.0 Estrogen receptor positive status [ER+]; I10 Essential (primary) hypertension; E78.5 Hyperlipidemia, unspecified; K21.9 Gastro-esophageal reflux disease without esophagitis; E66.3 Overweight; Z68.28 Body mass index [BMI] 28.0-28.9, adult; F32.9 Major depressive disorder, single episode, unspecified; Z90.5 Acquired absence of kidney; Z72.89 Other problems related to lifestyle; Z79.899 Other long term (current) drug therapy
CPT/HCPCS: 19285; 78195

== ENCOUNTER 2021-03-25 09:45 | Outpatient (CLI) | payer OTHER ==
--- NOTE | 2021-03-25 16:28 | DEXA Report ---
PROCEDURE: Dexa Spine and/or Hip INDICATIONS: BREAST CA TECHNIQUE: Dual energy x-ray absorptiometry (DXA) was performed on a Elox[employer] System. Regions measur ed are the AP Spine and forearm, secondary to bilateral hip replacements as well as lumbar fusion rojo [employer].. COMPARISON: None. FINDINGS: Lumbar Spine: Bone Mineral Density 0.978 g/cm/cm,T score -1.6, mild/moderate osteopenia Left forearm: Bone Mineral Density 0.629 g/cm/cm, T score -0.8, normal (T score greater or equal to -1.0: NORMAL) (T score from -1.1 to -2.4: OSTEOPENIA) (T score less than or equal to -2.5 to: OSTEOPOROSIS) Impression: Mild to moderate osteopenia within the lumbar spine. Patients with diagnosis of osteoporosis or osteopenia should have regular bone mineral density assess ment. For those eligible for Medicare, routine testing is allowed once every 2 years. Testing frequ ency can be increased for patients who have rapidly progressing disease or for those who are receivin g medical therapy to restore bone mass. Reviewed by: Olive Figueredo MD on 03/25/2021 4:27 PM PDT Approved by: Olive Figueredo MD on 03/25/2021 4:27 PM PDT Station ID: [id number]
== END 2021-03-25 09:46 | disposition home or self-care (01) ==
LOC: DI 09:45
PROVIDERS: ATTEND Internal Medicine Hematology & Oncology
DX: M85.88 Other specified disorders of bone density and structure, other site (principal); C50.919 Malignant neoplasm of unspecified site of unspecified female breast; Z96.643 Presence of artificial hip joint, bilateral; Z98.1 Arthrodesis status

== ENCOUNTER 2021-08-20 08:00 | Outpatient (CLI) | payer OTHER ==
--- NOTE | 2021-08-21 09:53 | Mammography Report ---
BILATERAL DIGITAL DIAGNOSTIC MAMMOGRAM 3D/2D - RIGHT BREAST POST LUMPECTOMY: 08/20/2021 CLINICAL: Post right lumpectomy. Routine screening. Personal history of right breast cancer. Comparison is made to exams dated: 12/01/2020 specimen, 12/01/2020 mammogram, 12/01/2020 localization, 11/13/2020 breast MRI, and 10/07/2020 mammogram - [facility]. There are scattered fibroglandular elements in both breasts. There is a biopsy clip and wire in the right breast at 12 o'clock. There is a benign irregular post-surgical scar in the right breast at 12 o'clock middle depth. This is seen in additional views. No other significant masses, calcifications, or other findings are seen in either breast. IMPRESSION: BENIGN There is no mammographic evidence of malignancy. A 1 year screening mammogram is recommended. This exam was interpreted at Station ID: [id number]. NOTE: For mammograms, a report in lay terms will be sent to the patient. Approximately 15% of breast malignancies will not be visualized mammographically. In the management of a palpable breast mass, a negative mammogram must not discourage biopsy of a clinically suspicious lesion. Electronically Signed By: Hany Miramontes acr/:08/20/2021 08:46:14 ACR BI-RADS Category 2: Benign Finding(s) 3342F PARENCHYMAL PATTERN: (A) - The breast(s) demonstrate(s) scattered fibroglandular densities. BI-RADS CATEGORY: (2) - 2 RECOMMENDATION: (ANNUAL) - Recommend routine annual screening mammography. [id number] 1 year screening LATERALITY: (B)
== END 2021-08-20 08:01 | disposition home or self-care (01) ==
LOC: DI 08:00
PROVIDERS: ATTEND Surgery
DX: R92.8 Other abnormal and inconclusive findings on diagnostic imaging of breast (principal); Z85.3 Personal history of malignant neoplasm of breast

== ENCOUNTER 2022-08-06 15:48 | Outpatient (CLI) | payer OTHER ==
--- NOTE | 2022-08-06 20:48 | XRAY Report ---
PROCEDURE: Foot 3 View BILAT INDICATIONS: FOOT PAIN TECHNIQUE: 3 views of the foot were acquired. COMPARISON: None FINDINGS: Bones: There is mild bilateral hallux valgus. No fractures or dislocations. Left worse in right bila teral first MTP joint osteoarthritic changes are seen with significant joint space narrowing, subchon dral sclerosis and marginal osteophyte formation. No gross bony erosive changes are seen. No suspicio us bony lesions. Soft tissues: Mild soft tissue swelling over medial aspect of bilateral first MTP joint is seen. No tibiotalar joint effusion. Achilles tendon appears normal. 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 No fracture or dislocation. No gross bony erosive changes. Reviewed by: Ant Vega MD on 08/06/2022 8:47 PM PDT Approved by: Ant Vega MD on 08/06/2022 8:47 PM PDT Station ID: [id number]
== END 2022-08-06 15:49 | disposition home or self-care (01) ==
LOC: DI 15:48
PROVIDERS: ATTEND Podiatrist
DX: M20.12 Hallux valgus (acquired), left foot (principal); M20.11 Hallux valgus (acquired), right foot; M21.612 Bunion of left foot; M21.611 Bunion of right foot; M19.072 Primary osteoarthritis, left ankle and foot; M19.071 Primary osteoarthritis, right ankle and foot

== ENCOUNTER 2022-08-18 07:51 | Outpatient (CLI) | payer OTHER ==
--- NOTE | 2022-08-18 10:27 | Mammography Report ---
BILATERAL DIGITAL DIAGNOSTIC MAMMOGRAM 3D/2D: 08/18/2022 CLINICAL: Patient returns for a follow up of the right breast, due for bilateral exam. Personal histo ry of right breast cancer. Comparison is made to exams dated: 08/20/2021 mammogram, 10/07/2020 mammogram, 12/01/2020 mammogram, a nd 08/06/2020 mammogram - [facility]. There are scattered areas of fibroglandular density in both breasts (category b / 25%-50% glandular t issue). There are benign post operative findings in the right breast. No significant masses, calcifications, or other findings are seen in either breast. There has been no significant interval change. IMPRESSION: BENIGN There is no mammographic evidence of malignancy. A 1 year screening mammogram is recommended. This exam was interpreted at Station ID: [id number]. NOTE: For mammograms, a report in lay terms will be sent to the patient. Approximately 15% of breast malignancies will not be visualized mammographically. In the management of a palpable breast mass, a negative mammogram must not discourage biopsy of a clinically suspicious lesion. Electronically Signed By: Darrel Lawrence M.D. [facility]/:08/18/2022 08:31:29 ACR BI-RADS Category 2: Benign Finding(s) 3342F PARENCHYMAL PATTERN: (A) - The breast(s) demonstrate(s) scattered fibroglandular densities. BI-RADS CATEGORY: (2) - 2 RECOMMENDATION: (ANNUAL) - Recommend routine annual screening mammography. [id number] 1 year screening LATERALITY: (B)
== END 2022-08-18 07:52 | disposition home or self-care (01) ==
LOC: DI 07:51
PROVIDERS: ATTEND Internal Medicine Hematology & Oncology
DX: Z85.3 Personal history of malignant neoplasm of breast (principal)

== ENCOUNTER 2023-07-22 07:33 | Outpatient (CLI) | payer OTHER ==
--- NOTE | 2023-07-22 16:30 | Mammography Report ---
BILATERAL DIGITAL SCREENING MAMMOGRAM 3D/2D: 07/22/2023 CLINICAL: Routine screening. Personal history of right breast cancer. Comparison is made to exams dated: 08/18/2022 mammogram, 08/20/2021 mammogram, 12/01/2020 mammogram, 09/2021 Scinti biopsy, and 10/07/2020 mammogram - [facility]. There are scattered areas of fibroglandular density in both breasts (category b / 25%-50% glandular t issue). There are benign post operative findings in the right breast. No significant masses, calcifications, or other findings are seen in either breast. There has been no significant interval change. IMPRESSION: BENIGN There is no mammographic evidence of malignancy. A 1 year screening mammogram is recommended. This exam was interpreted at Station ID: [id number]. NOTE: For mammograms, a report in lay terms will be sent to the patient. Approximately 15% of breast malignancies will not be visualized mammographically. In the management of a palpable breast mass, a negative mammogram must not discourage biopsy of a clinically suspicious lesion. Electronically Signed By: Evette dahl/abbie:07/22/2023 09:27:05 letter sent: No_Letter ACR BI-RADS Category 2: Benign Finding(s) 3342F PARENCHYMAL PATTERN: (A) - The breast(s) demonstrate(s) scattered fibroglandular densities. BI-RADS CATEGORY: (2) - 2 Mammogram [id number] 1 year screening LATERALITY: (B)
== END 2023-07-22 07:34 | disposition home or self-care (01) ==
LOC: DI 07:33
DX: Z12.31 Encounter for screening mammogram for malignant neoplasm of breast (principal); Z85.3 Personal history of malignant neoplasm of breast

== ENCOUNTER 2024-01-25 12:22 | Outpatient (CLI) | payer OTHER ==
--- NOTE | 2024-01-25 13:08 | XRAY Report ---
PROCEDURE: Ankle 3+V RT INDICATIONS: ANKLE PAIN TECHNIQUE: 3 views of the ankle were acquired. COMPARISON: None. FINDINGS: Bones: No fractures or dislocations. Ankle mortise is normally aligned. No suspicious bony lesions . Moderate swelling about the ankle. Soft tissues: Moderate tibiotalar joint effusion. Achilles tendon appears normal. IMPRESSION: No acute bony abnormality with a moderate joint effusion. If there remains a high clinical concern fo r fracture, consider cross-sectional imaging now. If pain persists, consider repeat x-ray in 10-14 da ys or cross-sectional imaging. Reviewed by: Clark Shane MD on 01/25/2024 1:07 PM PST Approved by: Clark Shane MD on 01/25/2024 1:07 PM PST Station ID: [id number]
== END 2024-01-25 12:23 | disposition home or self-care (01) ==
LOC: DI 12:22
PROVIDERS: ATTEND Physician Assistant
DX: M25.571 Pain in right ankle and joints of right foot (principal); M25.471 Effusion, right ankle

== ENCOUNTER 2024-02-02 09:00 | Outpatient (CLI) | payer OTHER ==
--- NOTE | 2024-02-02 15:34 | XRAY Report ---
PROCEDURE: Ankle 3 View RT INDICATIONS: RIGHT ANKLE PAIN TECHNIQUE: 3 views of the ankle were acquired. COMPARISON: Single view of the right ankle dated 01/25/2024. FINDINGS: Bones: No fractures or dislocations. Ankle mortise is normally aligned. No suspicious bony lesions . Probable old growth arrest lines are noted within the distal tibia and fibula. Soft tissues: No tibiotalar joint effusion. Achilles tendon appears normal. There is mild lateral malleolar soft tissue swelling. IMPRESSION: Lateral malleolar soft tissue swelling without underlying bony injury. If further characterization is warranted, MRI of the ankle could be used. Reviewed by: Clarissa Granado MD on 02/02/2024 3:33 PM PDT Approved by: Clarissa Granado MD on 02/02/2024 3:33 PM PDT Station ID: [id number]
== END 2024-02-02 23:59 | disposition home or self-care (01) ==
LOC: DI.WOS 09:00
PROVIDERS: ATTEND Physician Assistant Surgical
DX: M25.571 Pain in right ankle and joints of right foot (principal); R22.41 Localized swelling, mass and lump, right lower limb

== ENCOUNTER 2024-03-06 11:00 | Outpatient (CLI) | payer OTHER ==
--- NOTE | 2024-03-06 17:12 | XRAY Report ---
PROCEDURE: Ankle 3 View RT INDICATIONS: RIGHT ANKLE FRACTURE TECHNIQUE: 3 views of the ankle were acquired. COMPARISON: Right ankle radiograph on February 02, 2024 and January 25, 2024. FINDINGS: Bones: Tiny ossific density adjacent to the distal fibular tip. Corticated ossific density at the ba se of the fifth metatarsal, best seen on lateral view, compatible with an accessory ossicle versus se quela of remote injury. Linear transverse bands in the distal tibia and fibula compatible with growth arrest lines. Ankle mortise is normally aligned. No suspicious bony lesions. Soft tissues: Small tibiotalar joint effusion. Mild soft tissue swelling about the ankle, notably o verlying the lateral malleolus. Achilles tendon appears normal. IMPRESSION: 1.Tiny ossific density adjacent to the distal fibular tip may represent a tiny avulsion fracture. Cor relate for point tenderness. If further characterization is warranted, recommend a CT or MRI for furt her evaluation. 2.Mild soft tissue swelling about the ankle persists, notably overlying the lateral malleolus. Reviewed by: Toni aWtt MD on 03/06/2024 5:11 PM PDT Approved by: Toni Watt MD on 03/06/2024 5:11 PM PDT Station ID: [id number]
== END 2024-03-06 23:59 | disposition home or self-care (01) ==
LOC: DI.WOS 11:00
PROVIDERS: ATTEND Physician Assistant Surgical
DX: S82.61XA Displaced fracture of lateral malleolus of right fibula, initial encounter for closed fracture (principal)